=== PATIENT | male | born 1975 | race African-American/Black ===

== ENCOUNTER 2016-07-29 11:24 | Emergency (ER) | payer OTHER ==
[2016-07-29 11:29] VITALS: BP 164/99; PULSE 96; TEMP 97.7; BMI 39.1
--- NOTE | 2016-07-29 11:39 | PDOC ---
History of Present Illness - General Chief Complaint: Penile Drainage Stated Complaint: PENILE DISCHARGE Time Seen by Provider: 07/29/16 11:36 History Source: Patient Exam Limitations: No Limitations - History of Present Illness Initial Comments: 07/29/16 12:20 My Chief Complaint: penile discharge History of Present Illness: Patient is a 40-year-old male with no significant medical history here today complaining of penile clear discharge today. Patient denies any dysuria, hematuria, urgency or frequency. Patient denies any testicular pain. Patient reports being sexually active only with his for the last 2 months. Prior to this patient was incarcerated for 2 years. Patient denies any fever nausea or vomiting. Patient denies any incontinency. Timing/Duration: intermittent (today clear penile discharge ) Severity: mild Associated Symptoms: reports: denies symptoms Past History - Past Medical History Allergies/Adverse Reactions: Allergies Allergy/AdvReac Type Severity Reaction Status Date / Time No Known Allergies Allergy Verified 07/29/16 11:26 Home Medications: Ambulatory Orders NK [No Known Home Medication] 07/29/16 - Psycho/Social/Smoking Cessation Hx Anxiety: No Suicidal Ideation: No Smoking History: Never smoked Have you smoked in the past 12 months: Yes Number of Cigarettes Smoked Daily: 10 Information on smoking cessation initiated: No Hx Alcohol Use: No Drug/Substance Use Hx: No Substance Use Type: None Review of Systems - Review of Systems Able to Perform ROS?: Yes Constitutional: No: Symptoms Reported HEENTM: No: Symptoms Reported Respiratory: No: Symptoms reported Cardiac (ROS): No: Symptoms Reported ABD/GI: No: Symptoms Reported : Yes: Discharge (clear penile discharge todasy ), Other (penile discharge clear today ). No: Hematuria, Incontinence, Pain, Urgency, Testicular Mass, Testicular Swelling, Lesions, Testicular Pain Integumentary: No: Symptoms Reported Neurological: No: Symptoms reported *Physical Exam - Vital Signs Last Vital Signs Temp Pulse Resp BP Pulse Ox 97.7 F 96 H 18 164/99 100 07/29/16 11:26 07/29/16 11:26 07/29/16 11:26 07/29/16 11:26 07/29/16 11:26 - Physical Exam General Appearance: Yes: Appropriately Dressed Respiratory/Chest: positive: Lungs Clear, Normal Breath Sounds. negative: Chest Tender, Respiratory Distress Cardiovascular: positive: Regular Rhythm, Regular Rate, S1, S2 Male Genitalia: positive: normal genitalia, discharge (clear ), other ( circumcized). negative: testicular tenderness, testicular mass, epididymus tender, inguinal hernia, hernia, hematuria Neurologic: positive: Alert, Normal Response, Responsive Medical Decision Making - Medical Decision Making 07/29/16 12:23 Patient is a 40-year-old male with no significant medical history here today complaining of penile clear discharge today. Patient denies any dysuria, hematuria, urgency or frequency. Patient denies any testicular pain. Patient reports being sexually active only with his for the last 2 months. Prior to this patient was incarcerated for 2 years. Patient denies any fever nausea or vomiting. Patient denies any incontinency. unprotected sex penile discharge PLAN: urine chlamydia/GC trichomonas azithromycin 1 Gm rocephin 250 mg Im *DC/Admit/Observation/Transfer Diagnosis at time of Disposition: Unprotected sex, Penile discharge - Discharge Dispostion Disposition: HOME Condition at time of disposition: Stable - Patient Instructions Additional Instructions: Return to emergency room if symptoms worsen or new symptoms develop You may call in 3 days lab line to find out results of testing done here today Use condoms when having sexual relations Follow Up with your primary care provider within the next few days Patient voiced understanding of discharge instructions and all questions were answered
[2016-07-29] MEDS ORDERED: AZITHROMYCIN 1 GM PACKET PO ONE (12:19)
[2016-07-29] MEDS ORDERED: AZITHROMYCIN 1 GM PACKET ONE (12:23)
[2016-07-29] MEDS ORDERED: LIDOCAINE HCL 1%, 10 MG/ML (20ML VIAL) ONE (12:25)
--- NOTE | 2016-08-03 16:58 | PDOC ---
Patient Follow-up (Call Back) - Post ED Follow - Up Condition at time of discharge: Stable Disposition at time of original discharge: HOME Reason for Call Back: Abnwl. Microbiology (pt. called informed that he was positive for GC and negative for chlamydia 07/29/16, and was treated for both prophlactically)
== END 2016-07-29 12:33 | disposition home or self-care (01) ==
LOC: JERFT 11:24
DX: R36.9 Urethral discharge, unspecified (principal); Z77.21 Contact with and (suspected) exposure to potentially hazardous body fluids
CPT/HCPCS: 36415; 87491; 87591; 87661; 96372; 99281-25